=== PATIENT | female | born 1955 | race Caucasian/White ===

== ENCOUNTER 2018-05-24 06:00 | Emergency (ER) | payer SELFPAY ==
[~2018-05-24] VITALS: Ht 177.8 cm; Wt 90.0 kg
[2018-05-24 06:02] VITALS: BP 146/79
== END 2018-05-24 06:43 | disposition home or self-care (01) ==
LOC: ED 06:36
DX: R20.2 Paresthesia of skin (principal); F17.200 Nicotine dependence, unspecified, uncomplicated; V43.63XA Car passenger injured in collision with pick-up truck in traffic accident, initial encounter; Y93.89 Activity, other specified; Y92.89 Other specified places as the place of occurrence of the external cause; Y99.8 Other external cause status
CPT/HCPCS: 99281